=== PATIENT | female | born 1985 | race Two or more races ===

== ENCOUNTER 2017-03-16 01:16 | Emergency (ER) | payer MEDICAID, OTHER ==
[~2017-03-16] VITALS: Ht 165.1 cm; Wt 117.9 kg
[~2017-03-16 01:16] MED LIST: ALBU8.5H2; CEPH-570 PO; HYDR-3326 GT
[2017-03-16] MEDS ORDERED: FAMOTIDINE/PF INJ 20 MG/2 ML VIAL IV ONE ×2 (01:41→02:00)
[2017-03-16] MEDS ORDERED: IV SET PRIMARY 1 EA INFUS.SET MC ONE (01:41)
[2017-03-16] MEDS ORDERED: IV NS 0.9% 1,000 ML ONE (01:41)
[2017-03-16] MEDS ORDERED: methylPREDNISolone SOD SUCC 125 MG/2ML VIAL ONE (01:41)
[2017-03-16] MEDS ORDERED: IV NS 0.9% 1,000 ML BAG IV ONE (02:00)
[2017-03-16] MEDS ORDERED: methylPREDNISolone SOD SUCC 125 MG/2ML VIAL IV ONE (02:00)
--- NOTE | 2017-03-16 02:01 | NUR ---
pt ambulatory w/ steady gait, c/o tongue swelling w/ redness, itching s/p allergic reaction to possible exposure strawberries, took her epipen, report continues to have tongue swelling w/ itching, speaking full & complete sentences, denies any sob, appears anxious, placed on continuous pulse-ox w/ cardiac monitoring. Dr. Ang at bedside for further eval.
--- NOTE | 2017-03-16 02:10 | NUR ---
MARYCARMEN STARTED, LABS DRAWN & SENT.
[2017-03-16] MEDS ORDERED: diphenhydrAMINE HCL 50 MG/ML VIAL ONE ×2 (02:24→03:25)
--- NOTE | 2017-03-16 02:27 | NUR ---
pt report continues to have itching on tongue, requesting for benadryl. Dr. Ang notified, medicated as ordered.
[2017-03-16] MEDS ORDERED: diphenhydrAMINE HCL 50 MG/ML VIAL IV ONE ×2 (02:30→03:30)
--- NOTE | 2017-03-16 03:30 | NUR ---
pt medicated as ordered for pt report continues to have tongue itching.
--- NOTE | 2017-03-16 04:05 | NUR ---
pt asleep in bed w/ resp even & unlabored, easily arousable w/ nad noted.
--- NOTE | 2017-03-16 04:45 | NUR ---
pt asleep in bed w/ resp even & unlabored, easily arousable, denies any sob w/ nad noted. IV removed. Catheter intact and site benign. Pressure and 4x4 applied to site. No bleeding noted.Patient discharged to home in stable condition. Written and verbal after care instructions given. Patient verbalizes understanding of instruction.
[2017-03-16 04:46] VITALS: BP 148/78
== END 2017-03-16 04:46 | disposition home or self-care (01) ==
LOC: ER 01:18
DX: T78.40XA Allergy, unspecified, initial encounter (principal); F41.9 Anxiety disorder, unspecified; F43.10 Post-traumatic stress disorder, unspecified; I10 Essential (primary) hypertension; J45.909 Unspecified asthma, uncomplicated; X58.XXXA Exposure to other specified factors, initial encounter; Y92.89 Other specified places as the place of occurrence of the external cause; Y93.89 Activity, other specified; Y99.8 Other external cause status
CPT/HCPCS: A4606; J1200; J2930; J3490; J7030; Z7610

== ENCOUNTER 2017-07-06 16:47 | Emergency (ER) | payer OTHER ==
[~2017-07-06] VITALS: Ht 154.9 cm; Wt 115.7 kg
[2017-07-06 17:03] VITALS: BP 159/99
--- NOTE | 2017-07-06 17:10 | NUR ---
PATIENT PRESENTS TO ER C/O SOB, DIFFICULTY BREATHING LAST 2 DAYS. PATIENT STATES SHE'S RUN OUT OF HER ALBUTEROL INHALER. PATIENT IS A/OX 4. WHEEZING HEARD BILATERALLY. NO DISTRESS. VITALS STABLE. SAFETY AND COMFORT MEASURES IN PLACE. AWAITING MD ORDERS.
[2017-07-06] MEDS ORDERED: ALBUTEROL FS 2.5 MG/3 ML VIAL.NEB ONE (17:19)
[2017-07-06] MEDS ORDERED: IPRATROPIUM NEB FS 0.5 MG/2.5 ML AMPUL.NEB ONE (17:19)
--- NOTE | 2017-07-06 17:29 | NUR ---
BREATHING TREATMENT INITIATED BY RT.
[2017-07-06] MEDS ORDERED: predniSONE 20 MG TABLET PO ONE (17:30)
[2017-07-06] MEDS ORDERED: ALBUTEROL FS 2.5 MG/3 ML VIAL.NEB CONTNEB ONE (17:30)
[2017-07-06] MEDS ORDERED: IPRATROPIUM NEB FS 0.5 MG/2.5 ML AMPUL.NEB NEB ONE (17:30)
[2017-07-06] MEDS ORDERED: predniSONE 20 MG TABLET ONE (17:38)
--- NOTE | 2017-07-06 18:43 | NUR ---
Patient discharged to home in stable condition. Written and verbal after care instructions given. Patient verbalizes understanding of instruction.
== END 2017-07-06 18:45 | disposition home or self-care (01) ==
LOC: ER 16:58
DX: J45.901 Unspecified asthma with (acute) exacerbation (principal); I10 Essential (primary) hypertension; F17.200 Nicotine dependence, unspecified, uncomplicated; F41.9 Anxiety disorder, unspecified; Z90.49 Acquired absence of other specified parts of digestive tract; Z88.8 Allergy status to other drugs, medicaments and biological substances; Z90.710 Acquired absence of both cervix and uterus; Z71.6 Tobacco abuse counseling
CPT/HCPCS: 94644; 99285; A4606; J7512; Z7610

== ENCOUNTER 2017-07-15 12:28 | Emergency (ER) | payer OTHER ==
[~2017-07-15] VITALS: Ht 154.9 cm; Wt 115.7 kg
[2017-07-15 12:28] VITALS: BP 153/101
== END 2017-07-15 13:01 | disposition home or self-care (01) ==
LOC: ER 12:34
DX: Z76.0 Encounter for issue of repeat prescription (principal); J45.909 Unspecified asthma, uncomplicated; F41.9 Anxiety disorder, unspecified; F17.200 Nicotine dependence, unspecified, uncomplicated; Z90.49 Acquired absence of other specified parts of digestive tract; Z90.710 Acquired absence of both cervix and uterus; Z91.041 Radiographic dye allergy status
CPT/HCPCS: A4606; Z7610

== ENCOUNTER 2017-11-15 01:21 | Emergency (ER) | payer OTHER ==
[~2017-11-15] VITALS: Ht 165.1 cm; Wt 90.7 kg
[~2017-11-15 01:21] MED LIST changes: -ALBU8.5H2; +ALBU8.5H8
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
--- NOTE | 2017-11-15 01:28 | NUR ---
DR BUSH AT BEDSIDE TO EVALUATE PATIENT.
[2017-11-15] MEDS ORDERED: diphenhydrAMINE HCL 50 MG/ML VIAL ONE (01:29)
[2017-11-15] MEDS ORDERED: methylPREDNISolone SOD SUCC 125 MG/2ML VIAL ONE (01:29)
[2017-11-15] MEDS ORDERED: FAMOTIDINE/PF INJ 20 MG/2 ML VIAL IV ONE (01:30)
[2017-11-15] MEDS ORDERED: diphenhydrAMINE HCL 50 MG/ML VIAL IM ONE (01:30)
--- NOTE | 2017-11-15 02:41 | NUR ---
Patient discharged to home in stable condition. Written and verbal after care instructions given. Patient verbalizes understanding of instruction. Patient is ambulatory with steady gait, accompanied by family. Instructed patient not to drive. VSS. Nad on dc. No further complaints.
[2017-11-15 02:43] VITALS: BP 148/98
== END 2017-11-15 02:43 | disposition home or self-care (01) ==
LOC: ER 01:27
DX: T78.40XA Allergy, unspecified, initial encounter (principal); I10 Essential (primary) hypertension; J45.909 Unspecified asthma, uncomplicated; F41.9 Anxiety disorder, unspecified; F17.200 Nicotine dependence, unspecified, uncomplicated; Z98.890 Other specified postprocedural states; Z90.49 Acquired absence of other specified parts of digestive tract; Z90.710 Acquired absence of both cervix and uterus; Z88.8 Allergy status to other drugs, medicaments and biological substances; X58.XXXA Exposure to other specified factors, initial encounter
CPT/HCPCS: 96372; 99283; A4606; J1200; J2930; Z7610; J3490

== ENCOUNTER 2018-04-04 11:40 | Emergency (ER) | payer OTHER ==
[~2018-04-04] VITALS: Ht 154.9 cm; Wt 98.0 kg
[~2018-04-04 11:40] MED LIST changes: -HYDR-3326 GT; +HYDR-3974 GT
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
[2018-04-04] MEDS: Magnesium 1GM/D5W 100ML PREMIX 200 ML IV ONE ×2 (12:47→13:07)
[2018-04-04] MEDS ORDERED: ALBUTEROL FS 2.5 MG/3 ML VIAL.NEB ONE (12:54)
[2018-04-04] MEDS ORDERED: RACEPINEPHRINE HCL 2.25% NEB 0.5 ML VIAL.NEB IH ONE (12:54)
[2018-04-04] MEDS ORDERED: methylPREDNISolone SOD SUCC 125 MG/2ML VIAL ONE (12:55)
[2018-04-04] MEDS ORDERED: diphenhydrAMINE HCL 50 MG/ML VIAL ONE (12:55)
[2018-04-04] MEDS ORDERED: Magnesium 1GM/D5W 100ML PREMIX 200 ML IV ONE (12:56)
[2018-04-04] MEDS ORDERED: FAMOTIDINE/PF INJ 20 MG/2 ML VIAL IV ONE ×2 (12:56→13:00)
[2018-04-04] MEDS ORDERED: ALBUTEROL FS 2.5 MG/3 ML VIAL.NEB NEB ONE (13:00)
[2018-04-04] MEDS ORDERED: diphenhydrAMINE HCL 50 MG/ML VIAL IV ONE (13:00)
[2018-04-04] MEDS ORDERED: IV NS 0.9% 1,000 ML BAG IV ONE (13:00)
[2018-04-04] MEDS ORDERED: methylPREDNISolone SOD SUCC 125 MG/2ML VIAL IV ONE (13:00)
[2018-04-04] MEDS ORDERED: IPRATROPIUM NEB FS 0.5 MG/2.5 ML AMPUL.NEB NEB ONE (13:00)
[2018-04-04 15:06] VITALS: BP 139/68
== END 2018-04-04 15:15 | disposition home or self-care (01) ==
LOC: ER 11:44
DX: T78.40XA Allergy, unspecified, initial encounter (principal); J45.901 Unspecified asthma with (acute) exacerbation; R06.2 Wheezing; F41.9 Anxiety disorder, unspecified; I10 Essential (primary) hypertension; F17.200 Nicotine dependence, unspecified, uncomplicated; Z91.018 Allergy to other foods; Z88.8 Allergy status to other drugs, medicaments and biological substances; Z90.49 Acquired absence of other specified parts of digestive tract; Z98.890 Other specified postprocedural states; Z90.710 Acquired absence of both cervix and uterus
CPT/HCPCS: 94640; 94644; 96365; 96375; 99285; A4606; J1200; J2930; J3475; J3490; J7030; Z7610

== ENCOUNTER 2018-04-19 11:25 | Emergency (ER) | payer OTHER ==
[~2018-04-19] VITALS: Ht 165.1 cm; Wt 79.4 kg
[2018-04-19] MEDS ORDERED: IBUPROFEN 600 MG TABLET PO ONE ×2 (12:28→12:30)
[2018-04-19] MEDS ORDERED: HYDROCODONE/APAP 5/325MG 1 EACH TABLET PO ONE (14:00)
[2018-04-19] MEDS ORDERED: HYDROCODONE/APAP 5/325MG 1 EACH TABLET ONE (14:08)
[2018-04-19 14:19] VITALS: BP 132/60
--- NOTE | 2018-04-19 14:19 | NUR ---
Patient discharged to home in stable condition. Written and verbal after care instructions given. Patient verbalizes understanding of instruction.
== END 2018-04-19 14:21 | disposition home or self-care (01) ==
LOC: ER 11:26
DX: S13.9XXA Sprain of joints and ligaments of unspecified parts of neck, initial encounter (principal); S20.219A Contusion of unspecified front wall of thorax, initial encounter; J45.909 Unspecified asthma, uncomplicated; F41.9 Anxiety disorder, unspecified; I10 Essential (primary) hypertension; F17.200 Nicotine dependence, unspecified, uncomplicated; Z90.49 Acquired absence of other specified parts of digestive tract; Z88.8 Allergy status to other drugs, medicaments and biological substances; Z91.018 Allergy to other foods; Z90.710 Acquired absence of both cervix and uterus; V73.6XXA Passenger on bus injured in collision with car, pick-up truck or van in traffic accident, initial encounter; Y93.89 Activity, other specified; Y92.410 Unspecified street and highway as the place of occurrence of the external cause; Y99.8 Other external cause status
CPT/HCPCS: 70450; 71250; 72125; 84703; 99285; A4606; Z7610

== ENCOUNTER 2020-01-15 23:28 | Emergency (ER) | payer MEDICAID, OTHER ==
[~2020-01-15] VITALS: Ht 157.5 cm; Wt 65.8 kg
--- NOTE | 2020-01-15 23:45 | NUR ---
Deniz armstrong in ED - 01/16/20 at 0043 by FLORES FLUSHED THE CATHETER. NO RESISTANCE. MADE AWARE
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
[2020-01-15] MEDS ORDERED: diphenhydrAMINE HCL 50 MG/ML VIAL ONE (23:56)
[2020-01-16] MEDS ORDERED: diphenhydrAMINE HCL 50 MG/ML VIAL IM ONE
--- NOTE | 2020-01-16 | NUR ---
Deniz armstrong in EDM - 01/16/20 at 0043 by FLORES BLADDER SCANNER DONE. 768 URINE ML URINE RETAINED. MADE AWARE
--- NOTE | 2020-01-16 00:40 | NUR ---
Deniz armstrong in [facility] - 01/16/20 at 0043 by FLORES URINE OUTPUT FROM THE CHOWDHURY BAG= 600 ML
--- NOTE | 2020-01-16 00:55 | NUR ---
Patient is resting comfortably in bed with eyes closed. Easily aroused. VSS
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
--- NOTE | 2020-01-16 03:27 | NUR ---
PT REFUSED TO SIGN DISCHARGE PAPERS AND HOMELESS WAIVER. HOWEVER, FOOD IS PROVIDED TO PT.
--- NOTE | 2020-01-16 03:27 | NUR ---
PT REFUSED TO LEAVE HER ROOM
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
--- NOTE | 2020-01-16 08:51 | NUR ---
BREAKFAST TRAY PROVIDED AT BEDSIDE, PATIENT REFUSES TO EAT AT THIS TIME.
--- NOTE | 2020-01-16 09:01 | NUR ---
joelle called left a msg.
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
--- NOTE | 2020-01-16 11:24 | NUR ---
Patient given written and verbal discharge instructions. Patient verbalizes understanding of instructions. Patient is ambulatory with steady gait. Refuses offer of retirement placement. Patient given list of available shelters in surrounding area. Patient in proper clothing upon discharge. Name band removed. All belongings returned to patient.
--- NOTE | 2020-01-16 11:25 | NUR ---
Tap Card provided
[2020-01-16 11:28] VITALS: BP 147/94
== END 2020-01-16 11:29 | disposition home or self-care (01) ==
LOC: ER 23:31
DX: T78.1XXA Other adverse food reactions, not elsewhere classified, initial encounter (principal); I10 Essential (primary) hypertension; J45.909 Unspecified asthma, uncomplicated; F41.9 Anxiety disorder, unspecified; F17.200 Nicotine dependence, unspecified, uncomplicated; Z98.890 Other specified postprocedural states; Z90.49 Acquired absence of other specified parts of digestive tract; Z90.710 Acquired absence of both cervix and uterus; Z88.8 Allergy status to other drugs, medicaments and biological substances; Z91.018 Allergy to other foods; Z79.899 Other long term (current) drug therapy; X58.XXXA Exposure to other specified factors, initial encounter
CPT/HCPCS: 96372; 99283; J1200

== ENCOUNTER 2020-03-26 20:46 | Emergency (ER) | payer MEDICAID, OTHER ==
[~2020-03-26] VITALS: Ht 152.4 cm; Wt 65.8 kg
--- NOTE | 2020-03-26 21:00 | NUR ---
PT AAOX4. AMBULATORY C/O LEFT ARM PAIN AND LEFT CHEST PAIN STARTED THIS AM. Placed on monitor and pulse ox. vss. No acute distress noted.
[2020-03-26] MEDS ORDERED: oxyCODONE/APAP (5/325 MG) 1 UDTAB TABLET ONE ×2 (21:17→21:40)
[2020-03-26] MEDS ORDERED: oxyCODONE/APAP (5/325 MG) 1 UDTAB TABLET PO ONE ×2 (21:30)
--- NOTE | 2020-03-26 21:30 | NUR ---
xray at bedside
--- NOTE | 2020-03-26 22:01 | NUR ---
Patient discharged to home in stable condition. Written and verbal after care instructions given. Patient verbalizes understanding of instruction. Pt ambulated with steady gait. Denies pain.
[2020-03-26 22:08] VITALS: BP 128/82
== END 2020-03-26 22:08 | disposition home or self-care (01) ==
LOC: ER 20:46
DX: S20.212A Contusion of left front wall of thorax, initial encounter (principal); I10 Essential (primary) hypertension; J45.909 Unspecified asthma, uncomplicated; F41.9 Anxiety disorder, unspecified; F17.200 Nicotine dependence, unspecified, uncomplicated; Z90.49 Acquired absence of other specified parts of digestive tract; Z98.890 Other specified postprocedural states; Z88.8 Allergy status to other drugs, medicaments and biological substances; Z91.013 Allergy to seafood; Z91.018 Allergy to other foods; Z79.899 Other long term (current) drug therapy; X58.XXXA Exposure to other specified factors, initial encounter; Y93.89 Activity, other specified; Y92.89 Other specified places as the place of occurrence of the external cause; Y99.8 Other external cause status
CPT/HCPCS: 71045-TC

== ENCOUNTER 2023-09-13 09:53 | Emergency (ER) | payer OTHER ==
[~2023-09-13] VITALS: Ht 162.6 cm; Wt 79.4 kg
[2023-09-13] MEDS ORDERED: FAMOTIDINE/PF INJ 20 MG/2 ML VIAL IV ONE ×2 (10:12→10:30)
[2023-09-13] MEDS ORDERED: methylPREDNISolone SOD SUCC 125 MG/2ML VIAL ONE (10:12)
[2023-09-13] MEDS ORDERED: diphenhydrAMINE HCL 50 MG/ML VIAL ONE (10:12)
[2023-09-13] MEDS ORDERED: ALBUTEROL FS 2.5 MG/3 ML VIAL.NEB ONE (10:13)
[2023-09-13] MEDS ORDERED: IPRATROPIUM NEB FS 0.5 MG/2.5 ML AMPUL.NEB ONE (10:13)
[2023-09-13] MEDS ORDERED: EPINEPHRINE (1:1000) 1 MG/ML AMPUL ONE (10:14)
[2023-09-13 10:22] VITALS: O2SAT 99
[2023-09-13] MEDS ORDERED: methylPREDNISolone SOD SUCC 125 MG/2ML VIAL IV ONE (10:30)
[2023-09-13] MEDS ORDERED: diphenhydrAMINE HCL 50 MG/ML VIAL IV ONE (10:30)
[2023-09-13] MEDS ORDERED: ALBUTEROL FS 2.5 MG/3 ML VIAL.NEB NEB ONE (10:30)
[2023-09-13] MEDS ORDERED: EPINEPHRINE (1:1000) 1 MG/ML AMPUL SUBCUT ONE (10:30)
[2023-09-13] MEDS ORDERED: IPRATROPIUM NEB FS 0.5 MG/2.5 ML AMPUL.NEB NEB ONE (10:30)
[2023-09-13] MEDS ORDERED: PRED20TA PO (11:33)
[2023-09-13] MEDS ORDERED: ALBU18HF2 INH (11:33)
[2023-09-13] MEDS ORDERED: EPIN0.3P3 IM (11:33)
[2023-09-13] MEDS ORDERED: FAMO-131 PO (11:33)
[2023-09-13] MEDS ORDERED: DIPH25CA83 PO (11:33)
[2023-09-13 11:45] VITALS: O2SAT 99
[2023-09-13 12:05] VITALS: BP 126/72; TEMP 98; O2SAT 100
== END 2023-09-13 12:07 | disposition home or self-care (01) ==
LOC: ER 10:06
DX: J45.901 Unspecified asthma with (acute) exacerbation (principal); T78.40XA Allergy, unspecified, initial encounter; I10 Essential (primary) hypertension; F41.9 Anxiety disorder, unspecified; Z90.49 Acquired absence of other specified parts of digestive tract; Z91.013 Allergy to seafood; Z91.018 Allergy to other foods; Z88.8 Allergy status to other drugs, medicaments and biological substances; Z79.51 Long term (current) use of inhaled steroids; Z79.899 Other long term (current) drug therapy; X58.XXXA Exposure to other specified factors, initial encounter
CPT/HCPCS: 99285; 96374; 71045; 96375; 94644; 96372; J1200; J0171; J3490; J2930